=== PATIENT | female | born 1970 | race Caucasian/White ===

== ENCOUNTER → 2017-09-15 | Outpatient (CLI) | payer OTHER | LOC: BMCIMAGING 15:00 | PROVIDERS: ATTEND Obstetrics & Gynecology | DX: Z12.31 Encounter for screening mammogram for malignant neoplasm of breast (principal) ==

== ENCOUNTER 2019-02-08 14:17 | Emergency (ER) | payer OTHER | END 2019-02-08 16:02 | disposition home or self-care (01) ==